=== PATIENT | female | born 1965 | race African-American/Black ===

== ENCOUNTER 2018-06-17 13:33 | Inpatient (IN) | payer OTHER ==
[2018-06-17 15:48] VITALS: BMI 28.9
--- NOTE | 2018-06-17 15:56 | HP ---
Admission ROS [facility] Chief Complaint: i am here for rehab from heroin,crack and marijuana Allergies/Adverse Reactions: Allergies Allergy/AdvReac Type Severity Reaction Status Date / Time morphine Allergy Verified 06/17/18 15:48 History of Present Illness: this 53 years old female with heroin,crack and marijuana dependence,seeking rehab,completed detox form 06/10/18 to 06/17/18 [facility], history of hypertension,asthma,,arthritis nicotine dependence bipolar disorder peptic ulcer weight loss arthritis of both knees uri stated on amoxicillin 500 mgs at i to day,mentioned for strep throat Exam Limitations: No Limitations - Ebola screening Have you traveled outside of the country in the last 21 days: No Have you had contact with anyone from an Ebola affected area: No Do you have a fever: No - Review of Systems Constitutional: No Symptoms Reported EENT: reports: No Symptoms Reported Respiratory: reports: No Symptoms reported, Other (asthma) Cardiac: reports: No Symptoms Reported GI: reports: No Symptoms Reported : reports: No Symptoms Reported Musculoskeletal: reports: No Symptoms Reported Integumentary: reports: No Symptoms Reported Neuro: reports: No Symptoms reported Endocrine: reports: No Symptoms Reported Hematology: reports: No Symptoms Reported, Other (sickle cell trait) Psychiatric: reports: No Sypmtoms Reported, Judgement Intact, Mood/Affect Appropiate, Orientated x3 Patient History - Patient Medical History Hx Anemia: No Hx Asthma: Yes (on albuterol and symmbicort) Hx Chronic Obstructive Pulmonary Disease (COPD): No Hx Cancer: No Hx Cardiac Disorders: No Hx Congestive Heart Failure: No Hx Hypertension: Yes (on hydrochlorothiazide 25 mgs) Hx Hypercholesterolemia: No Hx Pacemaker: No HX Cerebrovascular Accident: No Hx Seizures: No Hx Dementia: No Hx Diabetes: No Hx Gastrointestinal Disorders: Yes (peptic ulcer) Hx Liver Disease: No Hx Genitourinary Disorders: No Hx Sexually Transmitted Disorders: No Hx Renal Disease (ESRD): No Hx Thyroid Disease: No Hx Human Immunodeficiency Virus (HIV): No (last 05/27/18) Hx Hepatitis C: No Hx Depression: No Hx Suicide Attempt: No Hx Bipolar Disorder: Yes (no meds) Hx Schizophrenia: No Other Medical History: no suicidal,no homicidal - Patient Surgical History Hx Section: Yes (x4 last 21 year) - PPD History Previous Implant?: Yes Documented Results: Positive w/o proof Implanted On Prior [facility] Admission?: No PPD to be Administered?: No - Reproductive History Patient is a Female of Child Bearing Age (11 -55 yrs old): No Patient : No - Smoking Cessation Smoking history: Current every day smoker Have you smoked in the past 12 months: Yes Aproximately how many cigarettes per day: 3 Cigars Per Day: 0 Hx Chewing Tobacco Use: No Initiated information on smoking cessation: Yes 'Breaking Loose' booklet given: 06/17/18 - Substance & Tx. History Hx Alcohol Use: No Hx Substance Use: Yes Substance Use Type: Cocaine, Heroin, Marijuana Hx Substance Use Treatment: Yes ([facility] 06/10/[facility] to 06/[facility]/18) - Substances Abused Heroin Route: Inhalation Frequency: Daily Amount used: 10 BAGS Age of first use: 37 Date of Last Use: 06/10/18 Crack Route: Smoking Frequency: Daily Amount used: $200 Age of first use: 17 Date of Last Use: 06/10/18 Marijuana/Hashish Route: Smoking Frequency: Daily Amount used: 17 BLUNTS Age of first use: 14 Date of Last Use: 06/10/18 Family Disease History - Family Disease History Family Disease History: Other: Father (alcohol,), Mother (alcohol, ) Admission Physical Exam [facility] - Vital Signs Vital Signs: Vital Signs Temperature 96.6 F L 06/17/18 15:43 Pulse Rate 82 06/17/18 15:43 Respiratory Rate 18 06/17/18 15:43 Blood Pressure 126/77 06/17/18 15:43 O2 Sat by Pulse Oximetry (%) - Physical General Appearance: Yes: Within Normal Limits HEENTM: Yes: AMY, Tm's normal, Other (parynx injected,treated for strep throat) Respiratory: Yes: Within Normal Limits (asthma), Lungs Clear, Normal Breath Sounds Neck: Yes: Within Normal Limits, Supple, Trachea in good position Breast: Yes: Breast Exam Deferred Cardiology: Yes: Within Normal Limits, Regular Rhythm, Regular Rate, S1, S2 Abdominal: Yes: Within Normal Limits, Normal Bowel Sounds, Non Tender, Flat, Soft Genitourinary: Yes: Within Normal Limits Back: Yes: Within Normal Limits Musculoskeletal: Yes: Within Normal Limits Extremities: Yes: Within Normal Limits Neurological: Yes: Within Normal Limits, reimbursement consultant II-XII NML intact, Alert, Motor Strength 5/5 Integumentary: Yes: Within Normal Limits Lymphatic: Yes: Within Normal Limits - Diagnostic (1) Opioid dependence Current Visit: Yes Status: Acute (2) Cocaine dependence Current Visit: Yes Status: Acute (3) Cannabis dependence Current Visit: Yes Status: Acute (4) Nicotine dependence Current Visit: Yes Status: Acute (5) Bipolar disorder Current Visit: Yes Status: Acute (6) Weight loss Current Visit: Yes Status: Acute (7) Positive PPD, treated Current Visit: Yes Status: Acute (8) Sickle cell trait Current Visit: Yes Status: Acute (9) URI (upper respiratory infection) Current Visit: Yes Status: Acute (10) Strep throat Current Visit: Yes Status: Acute (11) Peptic ulcer disease Current Visit: Yes Status: Acute Cleared for Admission [facility] - Detox or Rehab Claeared for Rehab Admission: Yes Inpatient Rehab Admission - Initial Determination Are CD services needed?: Yes Free of communicable disease: Yes Not in need of hospitalization: Yes - Rehab Admission Criteria Previous failed treatment: Yes Poor recovery environment: Yes Comorbidities: Yes Lacks judgement: No Patient is meeting Inpatient Rehab admission criteria:: Yes
[2018-06-17] MEDS ORDERED: IBUPROFEN 400 MG TABLET (FP) PO PRN (16:16)
[2018-06-17] MEDS ORDERED: hydrOXYzine PAMOATE 50 MG CAPSULE (FP) PO PRN (16:16)
[2018-06-17] MEDS ORDERED: P-EPHED 60MG/TRIPROLIDI 2.5MG TABLET PO PRN (16:16)
[2018-06-17] MEDS ORDERED: MAG HYDROX/AL HYDROX/SIMETH 30 ML UNIT-DOSE CUP PO PRN (16:16)
[2018-06-17] MEDS ORDERED: ACETAMINOPHEN 325 MG TABLET (FP) PO PRN (16:16)
[2018-06-17] MEDS ORDERED: MAGNESIUM HYDROX 2400MG/30ML ORAL SUSPENSION 30 ML CUP PO PRN (16:16)
[2018-06-17] MEDS ORDERED: MAGNESIUM CITRATE 300 ML BOTTLE PO PRN (16:16)
[2018-06-17] MEDS ORDERED: LOPERAMIDE HCL 2 MG CAPSULE PO PRN (16:16)
[2018-06-17] MEDS: THIAMINE HCL 100 MG TABLET (FP) PO SCH (21:57)
[2018-06-17] MEDS: AMOXICILLIN 500 MG CAPSULE (FP) PO SCH (21:58)
[2018-06-17] MEDS: BUDESONIDE/FORMETEROL FUMARATE 80/4.5 mcg INHALER IH SCH (21:59)
[2018-06-17 23:58] LABS: URINE APPEARANCE CLEAR; URINE BILIRUBIN NEGATIVE (<2.0 mg/dL); URINE COLOR STRAW; URINE GLUCOSE (UA) NEGATIVE (NEGATIVE); URINE KETONE NEGATIVE (NEGATIVE); URINE LEUK ESTERASE NEGATIVE (NEGATIVE); URINE NITRITE NEGATIVE (NEGATIVE); URINE PROTEIN NEGATIVE (NEGATIVE); URINE UROBILINOGEN NEGATIVE mg/dL (0.2-1.0)
[2018-06-18] MEDS: AMOXICILLIN 500 MG CAPSULE (FP) PO SCH ×3 (06:15→21:21)
[2018-06-18] MEDS ORDERED: PT OWN MED DRAWER 7, Y5N ONE (08:38)
[2018-06-18] MEDS: BUDESONIDE/FORMETEROL FUMARATE 80/4.5 mcg INHALER IH SCH ×2 (10:15→21:21)
[2018-06-18] MEDS: PRENATAL VITAMINS W/ FOLIC ACID TABLET (FP) PO SCH (10:15)
[2018-06-18] MEDS: RANITIDINE HCL 150 MG TABLET (FP) PO SCH (10:15)
[2018-06-18] MEDS: ALBUTEROL SO4 2.5/IPRATROPIUM 0.5 INH SOL 3 ML VIAL.NEB. NEB PRN (10:16)
[2018-06-18 10:23] LABS: HEMOGLOBIN 13.4 GM/dL (10.7-15.3); MCH 29.8 pg (25.7-33.7); MCHC 32.7 g/dl (32.0-36.0); MEAN CELL VOLUME 91.3 fl (80-96); PLATELET COUNT 226 K/MM3 (134-434); RBC 4.49 M/mm3 (3.60-5.2); RDW 14.7 % (11.6-15.6); WHITE BLOOD COUNT 5.1 K/mm3 (4.0-10.0)
[2018-06-18 11:01] LABS: ALBUMIN 3.7 g/dl (3.4-5.0); ALK PHOS 71 U/L (45-117); ANION GAP 8 MMOL/L (8-16); BILIRUBIN,TOTAL 0.3 mg/dL (0.2-1); BLOOD UREA NITROGEN 29 mg/dL (7-18); CALCIUM 9.5 mg/dL (8.5-10.1); CHLORIDE 101 mmol/L (98-107); CO2 29 mmol/L (21-32); CREATININE 0.7 mg/dL (0.55-1.3); GLUCOSE,RANDOM 90 mg/dL (74-106); POTASSIUM 4.2 mmol/L (3.5-5.1); SGOT/AST 8 U/L (15-37); SGPT/ALT 16 U/L (13-61); SODIUM 139 mmol/L (136-145); TOT PROT 7.6 g/dl (6.4-8.2)
--- NOTE | 2018-06-18 13:00 | EKG ---
Test Reason : Blood Pressure : / mmHG Vent. Rate : 080 BPM Atrial Rate : 080 BPM P-R Int : 150 ms QRS Dur : 084 ms QT Int : 374 ms P-R-T Axes : 075 025 048 degrees QTc Int : 431 ms NORMAL SINUS RHYTHM POSSIBLE LEFT ATRIAL ENLARGEMENT BORDERLINE ECG Confirmed by MD KARINA, ABBY ([id number]) on 06/18/2018 1:00:04 PM Referred By: Confirmed By:ABBY COLLINS MD
--- NOTE | 2018-06-18 15:11 | PN ---
[facility] Progress Note Note: PT REPORTS SHE TAKES HYDROCHLOROTHIAZIDE 25 MG PO DAILY. VERIFIED FROM HOME [facility]ARM[facility]. Vital Signs 06/18/18 10:00 Pulse Rate 72 Blood Pressure 109/75 Vital Signs - 24 hr 06/17/18 06/17/18 06/18/18 15:43 19:25 00:30 Temperature 96.6 F L 98.2 F Pulse Rate 82 76 Respiratory 18 18 18 Rate Blood Pressure 126/77 113/70 06/18/18 06/18/18 06/18/18 03:30 06:55 10:00 Temperature 98 F Pulse Rate 110 H 72 Respiratory 18 18 Rate Blood Pressure 114/80 109/75 CXR REPORTS NO PATHOLOGY PLAN:HYDROCHLOROTHIAZIDE 12.5 MG PO DAILY INCREASE TO 25 MG DAILY IF NEEDED.
[2018-06-18] MEDS: THIAMINE HCL 100 MG TABLET (FP) PO SCH (21:21)
[2018-06-19] MEDS: ALBUTEROL SO4 2.5/IPRATROPIUM 0.5 INH SOL 3 ML VIAL.NEB. NEB PRN ×2 (01:58→10:04)
[2018-06-19] MEDS: AMOXICILLIN 500 MG CAPSULE (FP) PO SCH ×3 (06:14→21:17)
[2018-06-19] MEDS ORDERED: PT OWN MED DRAWER 7, Y5N ONE ×2 (08:43→09:39)
[2018-06-19] MEDS: BUDESONIDE/FORMETEROL FUMARATE 80/4.5 mcg INHALER IH SCH ×2 (10:04→21:17)
[2018-06-19] MEDS: PRENATAL VITAMINS W/ FOLIC ACID TABLET (FP) PO SCH (10:04)
[2018-06-19] MEDS: RANITIDINE HCL 150 MG TABLET (FP) PO SCH (10:04)
[2018-06-19] MEDS: HYDROCHLOROTHIAZIDE 12.5 MG CAPSULE (FP) PO SCH (10:04)
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
[2018-06-19] MEDS: CITALOPRAM HYDROBROMIDE 10 MG TABLET (FP) PO SCH (15:26)
[2018-06-19] MEDS: THIAMINE HCL 100 MG TABLET (FP) PO SCH (21:17)
[2018-06-19] MEDS ORDERED: SUVOREXANT 10 MG TABLET PO PRN (22:00)
[2018-06-20] MEDS: AMOXICILLIN 500 MG CAPSULE (FP) PO SCH ×3 (05:36→21:23)
[2018-06-20] MEDS: ALBUTEROL SO4 2.5/IPRATROPIUM 0.5 INH SOL 3 ML VIAL.NEB. NEB PRN ×2 (05:36→16:15)
[2018-06-20] MEDS ORDERED: PT OWN MED DRAWER 7, Y5N ONE (08:47)
[2018-06-20] MEDS: HYDROCHLOROTHIAZIDE 12.5 MG CAPSULE (FP) PO SCH ×2 (10:19→10:22)
[2018-06-20] MEDS: PRENATAL VITAMINS W/ FOLIC ACID TABLET (FP) PO SCH (10:19)
[2018-06-20] MEDS: CITALOPRAM HYDROBROMIDE 10 MG TABLET (FP) PO SCH (10:19)
[2018-06-20] MEDS: RANITIDINE HCL 150 MG TABLET (FP) PO SCH (10:19)
[2018-06-20] MEDS: BUDESONIDE/FORMETEROL FUMARATE 80/4.5 mcg INHALER IH SCH ×2 (10:20→21:24)
[2018-06-20] MEDS: ALBUTEROL SO4 8 GM HFA INHALER IH PRN (15:10)
[2018-06-20] MEDS: THIAMINE HCL 100 MG TABLET (FP) PO SCH (21:23)
[2018-06-20] MEDS: MELATONIN 5 MG TABLETS PO PRN (21:23)
[2018-06-21] MEDS: ALBUTEROL SO4 2.5/IPRATROPIUM 0.5 INH SOL 3 ML VIAL.NEB. NEB PRN ×3 (00:06→22:13)
[2018-06-21] MEDS: AMOXICILLIN 500 MG CAPSULE (FP) PO SCH ×3 (06:43→21:15)
[2018-06-21] MEDS: HYDROCHLOROTHIAZIDE 12.5 MG CAPSULE (FP) PO SCH (09:56)
[2018-06-21] MEDS: CITALOPRAM HYDROBROMIDE 10 MG TABLET (FP) PO SCH (09:56)
[2018-06-21] MEDS: PRENATAL VITAMINS W/ FOLIC ACID TABLET (FP) PO SCH (09:56)
[2018-06-21] MEDS: BUDESONIDE/FORMETEROL FUMARATE 80/4.5 mcg INHALER IH SCH ×2 (09:56→21:15)
[2018-06-21] MEDS: RANITIDINE HCL 150 MG TABLET (FP) PO SCH ×2 (09:57→21:16)
[2018-06-21] MEDS: ALBUTEROL SO4 8 GM HFA INHALER IH PRN (18:09)
[2018-06-21] MEDS ORDERED: PT OWN MED DRAWER 7, Y5N ONE (19:30)
[2018-06-21] MEDS: MELATONIN 5 MG TABLETS PO PRN (21:15)
[2018-06-21] MEDS: THIAMINE HCL 100 MG TABLET (FP) PO SCH (21:16)
[2018-06-22] MEDS: AMOXICILLIN 500 MG CAPSULE (FP) PO SCH ×3 (06:26→21:09)
[2018-06-22] MEDS: ALBUTEROL SO4 2.5/IPRATROPIUM 0.5 INH SOL 3 ML VIAL.NEB. NEB PRN (09:40)
[2018-06-22] MEDS: CITALOPRAM HYDROBROMIDE 10 MG TABLET (FP) PO SCH (09:51)
[2018-06-22] MEDS: PRENATAL VITAMINS W/ FOLIC ACID TABLET (FP) PO SCH (09:51)
[2018-06-22] MEDS: HYDROCHLOROTHIAZIDE 12.5 MG CAPSULE (FP) PO SCH (09:51)
[2018-06-22] MEDS: BUDESONIDE/FORMETEROL FUMARATE 80/4.5 mcg INHALER IH SCH ×2 (09:51→21:10)
[2018-06-22] MEDS: guaiFENesin/D-METHORPHAN HB 10 ML UNIT-DOSE CUPS PO PRN (16:32)
[2018-06-22] MEDS: MELATONIN 5 MG TABLETS PO PRN (21:08)
[2018-06-22] MEDS: THIAMINE HCL 100 MG TABLET (FP) PO SCH (21:08)
[2018-06-22] MEDS: RANITIDINE HCL 150 MG TABLET (FP) PO SCH (21:08)
[2018-06-23] MEDS: ALBUTEROL SO4 2.5/IPRATROPIUM 0.5 INH SOL 3 ML VIAL.NEB. NEB PRN ×3 (02:58→22:48)
[2018-06-23] MEDS: AMOXICILLIN 500 MG CAPSULE (FP) PO SCH ×3 (06:35→21:39)
[2018-06-23] MEDS: ALBUTEROL SO4 8 GM HFA INHALER IH PRN ×2 (07:43→12:23)
[2018-06-23] MEDS: PRENATAL VITAMINS W/ FOLIC ACID TABLET (FP) PO SCH (09:58)
[2018-06-23] MEDS: HYDROCHLOROTHIAZIDE 12.5 MG CAPSULE (FP) PO SCH (09:58)
[2018-06-23] MEDS: CITALOPRAM HYDROBROMIDE 10 MG TABLET (FP) PO SCH (09:59)
[2018-06-23] MEDS: BUDESONIDE/FORMETEROL FUMARATE 80/4.5 mcg INHALER IH SCH ×2 (10:00→21:40)
[2018-06-23] MEDS: guaiFENesin/D-METHORPHAN HB 10 ML UNIT-DOSE CUPS PO PRN ×2 (12:22→21:40)
--- NOTE | 2018-06-23 13:48 | PN ---
[facility] Progress Note Note: history of asthma steroid dependence,will start on prednisone taper off
[2018-06-23] MEDS ORDERED: predniSONE 20 MG TABLET (UD) PO ONE (14:45)
[2018-06-23] MEDS: RANITIDINE HCL 150 MG TABLET (FP) PO SCH (21:39)
[2018-06-23] MEDS: THIAMINE HCL 100 MG TABLET (FP) PO SCH (21:39)
[2018-06-24] MEDS: AMOXICILLIN 500 MG CAPSULE (FP) PO SCH ×2 (06:14→14:06)
[2018-06-24] MEDS: ALBUTEROL SO4 2.5/IPRATROPIUM 0.5 INH SOL 3 ML VIAL.NEB. NEB PRN ×2 (06:49→11:50)
[2018-06-24] MEDS: HYDROCHLOROTHIAZIDE 12.5 MG CAPSULE (FP) PO SCH ×2 (08:02→10:35)
[2018-06-24] MEDS: ALBUTEROL SO4 8 GM HFA INHALER IH PRN ×2 (09:36→15:40)
[2018-06-24] MEDS ORDERED: predniSONE 10 MG TABLET (UD) PO ONE (10:00)
[2018-06-24] MEDS: PRENATAL VITAMINS W/ FOLIC ACID TABLET (FP) PO SCH (10:11)
[2018-06-24] MEDS: CITALOPRAM HYDROBROMIDE 10 MG TABLET (FP) PO SCH (10:11)
[2018-06-24] MEDS: guaiFENesin/D-METHORPHAN HB 10 ML UNIT-DOSE CUPS PO PRN (10:15)
[2018-06-24] MEDS: BUDESONIDE/FORMETEROL FUMARATE 80/4.5 mcg INHALER IH SCH ×2 (10:18→21:25)
[2018-06-24] MEDS: THIAMINE HCL 100 MG TABLET (FP) PO SCH (21:23)
[2018-06-24] MEDS: RANITIDINE HCL 150 MG TABLET (FP) PO SCH (21:24)
[2018-06-25] MEDS: MELATONIN 5 MG TABLETS PO PRN ×2 (01:05→21:33)
[2018-06-25] MEDS: ALBUTEROL SO4 2.5/IPRATROPIUM 0.5 INH SOL 3 ML VIAL.NEB. NEB PRN (09:05)
[2018-06-25] MEDS: ALBUTEROL SO4 8 GM HFA INHALER IH PRN ×2 (09:09→18:15)
[2018-06-25] MEDS ORDERED: predniSONE 20 MG TABLET (UD) PO ONE (10:00)
[2018-06-25] MEDS: PRENATAL VITAMINS W/ FOLIC ACID TABLET (FP) PO SCH (10:20)
[2018-06-25] MEDS: HYDROCHLOROTHIAZIDE 12.5 MG CAPSULE (FP) PO SCH (10:20)
[2018-06-25] MEDS: CITALOPRAM HYDROBROMIDE 10 MG TABLET (FP) PO SCH (10:20)
[2018-06-25] MEDS: BUDESONIDE/FORMETEROL FUMARATE 80/4.5 mcg INHALER IH SCH ×2 (10:22→21:33)
[2018-06-25] MEDS: MENTHOL/PHENOL 1 EACH UD MM PRN ×2 (11:28→21:36)
[2018-06-25] MEDS: guaiFENesin/D-METHORPHAN HB 10 ML UNIT-DOSE CUPS PO PRN ×2 (11:28→21:35)
--- NOTE | 2018-06-25 11:32 | PN ---
[facility] Progress Note Note: NURSE CALLED FOR PT C/O NASAL CONGESTION,COUGHING AND SOMETHING IN THROAT. HX ASTHMA WITH TREATMENT. REPORTS COMPLETED ANTIBIOTICS TREATMENT AT [facility] FOR STREP THROAT(SEE ADMISSION H/P). PT REPORTS FEELS SOME PHLEGM DOWN HER THROAT AND TICKLISH MAKING HER COUGH UNCONTROLLABLY OCCASIONALLY. Vital Signs - 24 hr 06/24/18 06/25/18 06/25/18 12:37 00:30 03:30 Temperature Pulse Rate 85 Respiratory 19 19 Rate Blood Pressure 131/84 06/25/18 06/25/18 06/25/18 06:30 07:08 10:28 Temperature 97.6 F Pulse Rate 64 82 Respiratory 19 18 18 Rate Blood Pressure 134/87 124/88 Laboratory Tests 06/17/18 06/18/18 06/18/18 22:22 07:30 07:30 WBC 5.1 RBC 4.49 Hgb 13.4 Hct 41.0 MCV 91.3 MCH 29.8 MCHC 32.7 RDW 14.7 Plt Count 226 MPV 9.0 Sodium 139 Potassium 4.2 Chloride 101 Carbon Dioxide 29 Anion Gap 8 BUN 29 H Creatinine 0.7 Creat Clearance w eGFR > 60 Random Glucose 90 Calcium 9.5 Total Bilirubin 0.3 AST 8 L ALT 16 Alkaline Phosphatase 71 Total Protein 7.6 Albumin 3.7 Urine Color Straw Urine Appearance Clear Urine pH 7.0 Ur Specific Drums 1.010 Urine Protein Negative Urine Glucose (UA) Negative Urine Ketones Negative Urine Blood Negative Urine Nitrite Negative Urine Bilirubin Negative Urine Urobilinogen Negative Ur Leukocyte Esterase Negative RPR Titer HIV 1&2 Antibody Screen HIV P24 Antigen 06/18/18 06/18/18 07:30 07:30 WBC RBC Hgb Hct MCV MCH MCHC RDW Plt Count MPV Sodium Potassium Chloride Carbon Dioxide Anion Gap BUN Creatinine Creat Clearance w eGFR Random Glucose Calcium Total Bilirubin AST ALT Alkaline Phosphatase Total Protein Albumin Urine Color Urine Appearance Urine pH Ur Specific Drums Urine Protein Urine Glucose (UA) Urine Ketones Urine Blood Urine Nitrite Urine Bilirubin Urine Urobilinogen Ur Leukocyte Esterase RPR Titer Nonreactive HIV 1&2 Antibody Screen Negative HIV P24 Antigen Negative LUNGS:CLEAR TO AUSCULTATE. NO WHEEZING OR RHONCHI PULSE OX 99% NASAL:MM MOIST WITH SMALL CLEAR DRAINAGE, NO REDNESS OR SWELLING. IMPRESSION:CHRONIC ASTHMA POST NASAL DRIP PLAN:CONTINUE RESP TX FOR ASTHMA OCEAN SPRAY NS NASAL SPRAY NOTED INCREASE FLUIDS TOLERATED CEPASTAT LOZENGES PRN ROBITTUSIN DM PRN
[2018-06-25] MEDS ORDERED: COLLOIDAL OATMEAL 1 BAR EACH TP PRN (12:12)
[2018-06-25] MEDS: SODIUM CHLORIDE NASAL SPRAY 44 ML BOTTLE NS SCH ×2 (14:30→21:33)
[2018-06-25] MEDS ORDERED: PT OWN MED DRAWER 7, Y5N ONE (16:20)
[2018-06-25] MEDS: THIAMINE HCL 100 MG TABLET (FP) PO SCH (21:33)
[2018-06-25] MEDS: RANITIDINE HCL 150 MG TABLET (FP) PO SCH (21:33)
[2018-06-26] MEDS ORDERED: PT OWN MED DRAWER 7, Y5N ONE (05:02)
[2018-06-26] MEDS: SODIUM CHLORIDE NASAL SPRAY 44 ML BOTTLE NS SCH (05:13)
[2018-06-26] MEDS: ALBUTEROL SO4 8 GM HFA INHALER IH PRN (05:14)
[2018-06-26] MEDS: MENTHOL/PHENOL 1 EACH UD MM PRN (05:15)
[2018-06-26 07:02] VITALS: TEMP 98.9
[2018-06-26] MEDS: CITALOPRAM HYDROBROMIDE 10 MG TABLET (FP) PO SCH (09:00)
[2018-06-26] MEDS: HYDROCHLOROTHIAZIDE 12.5 MG CAPSULE (FP) PO SCH (09:00)
[2018-06-26] MEDS: PRENATAL VITAMINS W/ FOLIC ACID TABLET (FP) PO SCH (09:01)
[2018-06-26] MEDS: BUDESONIDE/FORMETEROL FUMARATE 80/4.5 mcg INHALER IH SCH (09:01)
[2018-06-26] MEDS ORDERED: predniSONE 10 MG TABLET (UD) PO ONE (10:00)
[2018-06-26 10:51] VITALS: BP 127/85; PULSE 90
--- NOTE | 2018-06-26 13:47 | PN ---
Psychiatric Progress Note Vital Signs: Vital Signs Period Temp Pulse Resp BP Sys/[place] Pulse Ox Last 24 Hr 98.9 F 74-90 18-18 127-167/73-85 Date of Session: 06/26/18 Chief Complaint:: Discharge visit Current Side Effect: No Lab tests ordered: No Lab tests reviewed: Yes
--- NOTE | 2018-06-26 13:49 | PN ---
Psychiatric Progress Note Vital Signs: Vital Signs Period Temp Pulse Resp BP Sys/[place] Pulse Ox Last 24 Hr 98.9 F 74-90 18-18 127-167/73-85 Date of Session: 06/26/18 Chief Complaint:: discharge visit Current Side Effect: No Lab tests ordered: No Lab tests reviewed: Yes
[2018-06-27] MEDS ORDERED: predniSONE 5 MG TABLET (UD) PO ONE (10:00)
== END 2018-06-26 09:22 | disposition home or self-care (01) | DRG 772 ==
LOC: YASAS 13:33 → Y3E 16:23
PROVIDERS: ADMIT Psychiatry & Neurology Psychiatry; ATTEND Psychiatry & Neurology Psychiatry
PROC: HZ42ZZZ Group Counseling for Substance Abuse Treatment, Cognitive-Behavioral (ICD-10-PCS; principal; 2018-06-26)
DX: F10.20 Alcohol dependence, uncomplicated (principal); F14.20 Cocaine dependence, uncomplicated; F12.20 Cannabis dependence, uncomplicated; F17.210 Nicotine dependence, cigarettes, uncomplicated; F39 Unspecified mood [affective] disorder; F31.81 Bipolar II disorder; F19.282 Other psychoactive substance dependence with psychoactive substance-induced sleep disorder; I10 Essential (primary) hypertension; J02.0 Streptococcal pharyngitis; J45.909 Unspecified asthma, uncomplicated; J06.9 Acute upper respiratory infection, unspecified; R09.82 Postnasal drip; R76.11 Nonspecific reaction to tuberculin skin test without active tuberculosis; K27.9 Peptic ulcer, site unspecified, unspecified as acute or chronic, without hemorrhage or perforation; D57.3 Sickle-cell trait; R63.4 Abnormal weight loss; Z68.28 Body mass index [BMI] 28.0-28.9, adult
CPT/HCPCS: 36415; 71046-TC-FY; 80053; 81003; 85027; 86593; 87389; 93005; 93010; 94640